=== PATIENT | male | born 1990 | race Caucasian/White ===

== ENCOUNTER 2018-05-23 10:27 | Emergency (ER) | payer OTHER, BC ==
[2018-05-23 10:35] VITALS: BP 135/80; PULSE 85; TEMP 97.9; BMI 41.5
[2018-05-23] MEDS ORDERED: KETOROLAC TROMETHAMINE 60 MG/2 ML VIAL ONE (11:19)
[2018-05-23] MEDS ORDERED: KETOROLAC TROMETHAMINE 60 MG/2 ML VIAL IM ONE (11:19)
--- NOTE | 2018-05-23 11:20 | PDOC ---
History of Present Illness - General Chief Complaint: Injury Stated Complaint: INJURY Time Seen by Provider: 05/23/18 11:04 History Source: Patient Exam Limitations: No Limitations - History of Present Illness Initial Comments: 05/23/18 11:47 States yesterday was walking across parking lot slipped and twisted his back causing a strain to his right upper back. Has had problems in the past Occurred: reports: yesterday Severity: reports: mild, moderate Pain Location: reports: back Method of Injury: Yes: fall Modifying Factors: improves with: None Loss of Consciousness: no loss of consciousness Associated Symptoms (Fall): denies symptoms, trouble walking Past History - Travel Traveled outside of the country in the last 30 days: No (slipped but did not fall to ground) Close contact w/someone who was outside of country & ill: No - Past Medical History Allergies/Adverse Reactions: Allergies Allergy/AdvReac Type Severity Reaction Status Date / Time No Known Allergies Allergy Unverified 03/03/16 07:32 Home Medications: Ambulatory Orders No Home Medications 0 dose .ROUTE UTDICT 09/04/12 Cyclobenzaprine HCl 10 mg PO Q8H PRN #14 tablet 05/23/18 Naproxen [Naprosyn -] 500 mg PO BID #30 tablet 05/23/18 Anemia: No Asthma: No Cancer: No Cardiac Disorders: No CVA: No COPD: No CHF: No Dementia: No Diabetes: No GI Disorders: No Disorders: No HTN: Yes (BORDERLINE-NO MEDS) Hypercholesterolemia: No Liver Disease: No Seizures: No Thyroid Disease: No - Surgical History Gastric Stapling: No (LAP BAND) - Family Disease History Family Disease History: Diabetes: Mother - Suicide/Smoking/Psychosocial Hx Smoking History: Smoker current status UNK Have you smoked in the past 12 months: No Hx Alcohol Use: No Drug/Substance Use Hx: No Substance Use Type: None Hx Substance Use Treatment: No Trauma Specific PMHX - Complaint Specific PMHX Arthritis: No Back Injury: No Neck Injury: No Hx Sacro Iliac Joint Dysfunction: No Review of Systems - Review of Systems Able to Perform ROS?: Yes Is the patient limited Korean proficient: Yes Constitutional: Yes: Symptoms Reported, See HPI, Malaise HEENTM: No: Symptoms Reported Respiratory: No: Symptoms reported Musculoskeletal: Yes: Symptoms Reported, See HPI, Back Pain, Muscle Pain Integumentary: Yes: See HPI. No: Symptoms Reported All Other Systems: Reviewed and Negative *Physical Exam - Vital Signs Last Vital Signs Temp Pulse Resp BP Pulse Ox 97.9 F 85 18 135/80 99 05/23/18 10:33 05/23/18 10:33 05/23/18 10:33 05/23/18 10:33 05/23/18 10:33 - Physical Exam General Appearance: Yes: Nourished, Appropriately Dressed, Apparent Distress, Mild Distress HEENT: positive: MEHNAZ, Normal ENT Inspection, TMs Normal, Pharynx Normal Neck: positive: Supple. negative: Tender, Lymphadenopathy (R), Lymphadenopathy (L) Respiratory/Chest: positive: Lungs Clear, Normal Breath Sounds. negative: Chest Tender Cardiovascular: positive: Regular Rhythm Gastrointestinal/Abdominal: positive: Soft. negative: Tender Musculoskeletal: positive: Normal Inspection, Decreased Range of Motion, Muscle Spasm (tight palpable musculature to paravertebral spinous muscles on the right mid thoracic area, no true spine tenderness crepitus or step-offs. Range of motion is somewhat limited secondary to this tenderness.). 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 *DC/Admit/Observation/Transfer Diagnosis at time of Disposition: Back muscle spasm - Discharge Dispostion Disposition: HOME Condition at time of disposition: Stable Decision to Admit order: No - Prescriptions Prescriptions: Cyclobenzaprine HCl 10 mg PO Q8H PRN #14 tablet PRN Reason: spasm Naproxen [Naprosyn -] 500 mg PO BID #30 tablet - Referrals Referrals: Zachary Gastelum MD [Primary Care Provider] - - Patient Instructions Printed Discharge Instructions: DI for Back Spasm Additional Instructions: Rest, no heavy lifting or exercise until pain is resolved Hot soaks to neck and low back as often as possible/hot showers or Jacuzzis No massage or therapy until spasm is gone Continue Naprosyn 500 mg tablet, 1 tablet every 8 hours for the next 3 days then as needed for pain and swelling Cyclobenzaprine 1-10mg every 8 hours as needed for spasm If not significant improvement within 24 hours with medication and rest regime, followup with private physician for change in medications and /or therapy. - Post Discharge Activity Forms/Work/School Notes: Back to Work
== END 2018-05-23 12:35 | disposition home or self-care (01) ==
LOC: JERFT 10:27
PROC: 3E0233Z Introduction of Anti-inflammatory into Muscle, Percutaneous Approach (ICD-10-PCS; principal; 2018-05-23)
DX: S29.012A Strain of muscle and tendon of back wall of thorax, initial encounter (principal); M62.830 Muscle spasm of back; W18.49XA Other slipping, tripping and stumbling without falling, initial encounter; Y93.01 Activity, walking, marching and hiking; Y92.481 Parking lot as the place of occurrence of the external cause; Y99.8 Other external cause status
CPT/HCPCS: 99281-25

== ENCOUNTER 2019-01-22 23:36 | Emergency (ER) | payer BC, OTHER ==
--- NOTE | 2019-01-22 23:53 | PDOC ---
Attending Attestation - Resident Resident Name: Herb Cortez - ED Attending Attestation I have performed the following: I have examined & evaluated the patient, The case was reviewed & discussed with the resident, I agree w/resident's findings & plan, Exceptions are as noted - HPI HPI: 01/23/19 00:03 28 yo male BIBA after a syncopal episode HPI the patient states that he was drinking and then started to laugh at a friend's choke and started coughing and had a brief 3-second syncopal episode He was concerned because apparently had similar episode on Tuesday01/23/19 00:16 - Physicial Exam PE: 01/23/19 00:17 Obese 27-year-old male seated on a gurney no acute distress Head is normocephalic atraumatic Neck is supple, no bruits Lungs are clear to auscultation CVS tachycardia Abdomen protuberant, with large pannus Skin warm and dry No CVA tenderness Neuro alert and oriented x3 moving all extremities purposefully - Medical Decision Making 01/23/19 01:50 labs reviewed, negative troponin plat 125,000 [id number] otherwise unremarkable 01/23/19 01:54 This EKG is normal sinus tachycardia at 106 and has no significant changes from his previous EKG on July 19, 2012 that showed a sinus tachycardia at 105 01/23/19 02:10 pt will require repeat troponin
[2019-01-23] MEDS ORDERED: LACTATED RINGERS SOLUTION 1000 ML INFUS.BAG IV ONE (00:05)
[2019-01-23 00:09] VITALS: BMI 44.6
--- NOTE | 2019-01-23 00:13 | PDOC ---
History of Present Illness - General Chief Complaint: Syncope/Near Syncope Stated Complaint: SYNCOPE Time Seen by Provider: 01/22/19 23:44 History Source: Patient, Old Records Exam Limitations: No Limitations - History of Present Illness Initial Comments: HPI: 28 y/o male presenting to [facility] ER complaining of "passing out" earlier tonight. Pt reports he was drinking (5-6 drinks), telling a joke, began coughing, then "lights out" for approx. 3 seconds. He was sitting on the cough at the time. The event was witnessed by friends. Denies tongue biting, urinary incontinence, or fecal incontinence. Returned to baseline immediately after waking. Experienced similar episode on Tuesday. Endorses EtOH both nights. Denies recent car or plane travel, no long periods of immobilization, no recent surgery, no recent cancer diagnosis, no h/o DVT/PE or other clotting disorder. Family Hx: - No h/o of sudden <35 years old - No while swimming - No h/o CT < age 65 Social Hx: - EtOH: few times per week - Uses electronic vaping pen. Denies using cartridges from unregulated sources. - Denies street drugs Medical Hx: - Morbid obesity - S/p lap banding procedure 5 years ago Review of Systems: In addition to that documented in the HPI above, the additional ROS was obtained : Constitutional- Denies fevers or chills Head- Denies vision changes ENMT- Denies sore throat CV- Denies chest pain Resp- Denies SOB GI- Denies vomiting or diarrhea - Denies painful urination MSK- Denies recent trauma Skin- Denies new rashes Neuro- Denies new numbness or tingling or weakness Endocrine- Denies polyuria Heme- Denies bleeding or bruising Physical Examination: Constitutional- Well-developed, well-nourished adult male in no acute distress or obvious discomfort. Morbidly obese body habitus. Found semi-fowlers on hospital bed. Answered all questions appropriately and completely. Head- Normocephalic. No obvious external signs of trauma. Eyes- Sclerae white. Neck- Supple, trachea is midline. Cardiovascular / Chest- Tachycardic rate with regular rhythm. No murmur, rubs, clicks, or gallops. Peripheral pulses- radial pulses full. No pretibial edema. Respiratory- Breathing unlabored. Speaking in complete sentences without pausing. Infrequent dry sounding cough. Equal chest rise and fall. Clear to auscultation bilaterally. No stridor, no wheezing, no rhonchi. Gastrointestinal- abdomen is soft, non-tender, non-distended. Exam limited by large pannus. Neuro- Alert and oriented x4. Moving all four extremities spontaneously. Gait normal. Skin- Warm, dry, and intact. Psych- Affect- appropriate. Mood- normal. Speech was non-labored, non- pressured. MDM: *Reviewed vital signs, nursing notes, and prior visit documentation (if available). 28 y/o male presenting with brief syncopal episode of approx. 3 seconds. No chest or respiratory symptoms. Afebrile rectally. Vitals remarkable for tachycardia without hypotension. Normoxic on room air. Physical exam as described above. EKG unremarkable for ischemic changes. Initial troponin negative. No significant electrolyte derangement. Given 1L LR IVFB with improvement but no resolution of tachycardia. However, previous vitals dated back to 2012 indicate the pts HR is possibly baseline. Suspect likely vasovagal syncope but will repeat troponin at three hours given tachycardia. 23 Jan 2019 02:00 AM Pt signed out to resident Dr. Justin after she was verbally appraised of the pts HPI, current ED course, and plan of management. Will f/u repeat troponin. Herb Cortez M.D., PGY2 Emergency Medicine Resident Past History - Past Medical History Allergies/Adverse Reactions: Allergies Allergy/AdvReac Type Severity Reaction Status Date / Time No Known Allergies Allergy Verified 01/23/19 01:36 Home Medications: Ambulatory Orders NK [No Known Home Medication] 01/23/19 Anemia: No Asthma: No Cancer: No Cardiac Disorders: No CVA: No COPD: No CHF: No Dementia: No Diabetes: No GI Disorders: No Disorders: No HTN: Yes (BORDERLINE-NO MEDS) Hypercholesterolemia: No Liver Disease: No Seizures: No Thyroid Disease: No - Surgical History Gastric Stapling: No (LAP BAND) - Psycho Social/Smoking Cessation Hx Smoking History: Current every day smoker Have you smoked in the past 12 months: Yes Information on smoking cessation initiated: No Hx Alcohol Use: Yes Drug/Substance Use Hx: No Substance Use Type: None Hx Substance Use Treatment: No *Physical Exam - Vital Signs Last Vital Signs Temp Pulse Resp BP Pulse Ox 97.5 F L 93 H 22 H 138/100 93 L 01/22/19 23:40 01/22/19 23:40 01/22/19 23:40 01/22/19 23:40 01/22/19 23:40 Vital Signs - Vital Signs #1 Blood Pressure: 147/99 (@01:44) MAP: 115 BP Location: Left Arm Blood Pressure Position: Sitting Pulse Rate: 109 Respiratory Rate: 22 O2 Sat by Pulse Oximetry (%): 96 Oxygen Delivery Method: Room Air ED Treatment Course - LABORATORY CBC & Chemistry Diagram: 01/23/19 01:00 01/23/19 01:00 - RADIOLOGY Radiology Studies Ordered: Category Date Time Status CHEST PA & LAT [RAD] Stat Radiology 01/23/19 00:05 Ordered Discharge - Discharge Information Problems reviewed: Yes Clinical Impression/Diagnosis: Syncope Condition: Stable Disposition: HOME - Follow up/Referral Referrals: Zachary Gastelum MD [Primary Care Provider] - Anson Salinas MD [Staff Physician] - - Patient Discharge Instructions Patient Printed Discharge Instructions: DI for Syncope in Adults (Fainting) Additional Instructions: You were seen in the ED for complaints of loss of consciousnes You had labwork and imaging that was unremarkab;e. Please follow up with your PCP within 1 week. You have a referral to Cardiology. Please follow up within the week. Return to the ED if you have repeat loss of consciousness, chest pain, shortness of breath or any concerning symptoms. - Post Discharge Activity
[2019-01-23 01:26] LABS: BASO % 0.2 % (0-2.0); EOS % 1.7 % (0-4.5); HEMATOCRIT 45.4 % (35.4-49); HEMOGLOBIN 15.5 GM/dL (11.7-16.9); LYMPH % 15.2 % (8-40); MCH 31.1 pg (25.7-33.7); MCHC 34.2 g/dl (32.0-35.9); MEAN PLT VOLUME 7.9 fl (7.5-11.1); MONO % 14.2 % (3.8-10.2); NEUT % 68.7 % (42.8-82.8); PLATELET COUNT 125 K/MM3 (134-434); RBC 4.99 M/mm3 (4.00-5.60); RDW 12.7 % (11.9-15.9); WHITE BLOOD COUNT 7.2 K/mm3 (4.0-10.0)
[2019-01-23 01:46] LABS: ALBUMIN 4.3 g/dl (3.4-5.0); BILIRUBIN,TOTAL 0.3 mg/dL (0.2-1); BLOOD UREA NITROGEN 10.6 mg/dL (7-18); CALCIUM 8.8 mg/dL (8.5-10.1); CREATININE 0.8 mg/dL (0.55-1.3); POTASSIUM 3.5 mmol/L (3.5-5.1); TOT PROT 7.3 g/dl (6.4-8.2)
--- NOTE | 2019-01-23 02:52 | PDOC ---
*Physical Exam - Vital Signs Last Vital Signs Temp Pulse Resp BP Pulse Ox 99.4 F 109 H 22 H 147/99 96 01/23/19 02:05 01/23/19 02:26 01/23/19 02:26 01/23/19 02:26 01/23/19 02:26 - Physical Exam Comments: 01/23/19 02:49 Patient signed out by resident Dr. Cortez In short patient is obese who presents seconds of syncopal episodes pending repeat trop and d dimer Patient denies history of sudden cardiac ED Course: trop, ddimer, bnp and repeat ekg all within normal ekg nsr at 101bpm patient with HR at 95 at bedside. Patient resting comfortably Given cards and pcp f/u D/C Vital Signs - Vital Signs #1 Pulse Rate: 96 ED Treatment Course - LABORATORY CBC & Chemistry Diagram: 01/23/19 01:00 01/23/19 01:00 - ADDITIONAL ORDERS Additional order review: Laboratory Results 01/23/19 01/23/19 01:00 01:00 Sodium 137 Potassium 3.5 Chloride 103 Carbon Dioxide 24 Anion Gap 10 BUN 10.6 Creatinine 0.8 Est GFR (CKD-EPI)AfAm 140.90 Est GFR (CKD-EPI)NonAf 121.57 Random Glucose 128 H Calcium 8.8 Total Bilirubin 0.3 AST 34 ALT 87 H Alkaline Phosphatase 66 Troponin I < 0.02 Total Protein 7.3 Albumin 4.3 01/23/19 01:00 RBC 4.99 MCV 91.0 MCHC 34.2 RDW 12.7 MPV 7.9 Neutrophils % 68.7 Lymphocytes % 15.2 D Monocytes % 14.2 H Eosinophils % 1.7 Basophils % 0.2 - Medications Given in the ED: ED Medications Discontinued Medications Generic Name Dose Route Start Last Admin Trade Name Freq PRN Reason Stop Dose Admin Lactated Ringer's 1,000 ml 01/23/19 00:05 01/23/19 00:22 Lactated Ringers Solution IV 01/23/19 00:06 1,000 ml ONCE ONE Administration Discharge - Discharge Information Problems reviewed: Yes Clinical Impression/Diagnosis: Syncope Condition: Stable Disposition: HOME - Follow up/Referral Referrals: Zachary Gastelum MD [Primary Care Provider] - Anson Salinas MD [Staff Physician] - - Patient Discharge Instructions Patient Printed Discharge Instructions: DI for Syncope in Adults (Fainting) Additional Instructions: You were seen in the ED for complaints of loss of consciousnes You had labwork and imaging that was unremarkab;e. Please follow up with your PCP within 1 week. You have a referral to Cardiology. Please follow up within the week. Return to the ED if you have repeat loss of consciousness, chest pain, shortness of breath or any concerning symptoms. - Post Discharge Activity
[2019-01-23 06:04] VITALS: TEMP 98
--- NOTE | 2019-01-23 09:19 | EKG ---
Test Reason : Blood Pressure : / mmHG Vent. Rate : 110 BPM Atrial Rate : 110 BPM P-R Int : 148 ms QRS Dur : 096 ms QT Int : 324 ms P-R-T Axes : 028 -09 017 degrees QTc Int : 438 ms SINUS TACHYCARDIA INFERIOR INFARCT , AGE UNDETERMINED ABNORMAL ECG NO PREVIOUS ECGS AVAILABLE Confirmed by MD Mansoor, Toribio ([id number]) on 01/23/2019 9:19:27 AM Referred By: Confirmed By:Toribio Max MD
--- NOTE | 2019-01-23 09:22 | EKG ---
Test Reason : Blood Pressure : / mmHG Vent. Rate : 101 BPM Atrial Rate : 101 BPM P-R Int : 144 ms QRS Dur : 086 ms QT Int : 350 ms P-R-T Axes : 046 011 030 degrees QTc Int : 453 ms SINUS TACHYCARDIA OTHERWISE NORMAL ECG WHEN COMPARED WITH ECG OF 23-JAN-2019 00:57, NO SIGNIFICANT CHANGE WAS FOUND Confirmed by MD Max Edward ([id number]) on 01/23/2019 9:22:18 AM Referred By: Confirmed By:Toribio Max MD
[2019-01-24 14:21] VITALS: BP 147/99; PULSE 109
== END 2019-01-23 05:50 | disposition home or self-care (01) ==
LOC: JER 23:36
DX: R55 Syncope and collapse (principal); I10 Essential (primary) hypertension; E66.01 Morbid (severe) obesity due to excess calories; Z68.42 Body mass index [BMI] 45.0-49.9, adult; Z98.84 Bariatric surgery status
CPT/HCPCS: 36415; 71046-TC-FY; 80053; 83880; 84484; 85025; 85379; 93005; 93010; 99285-25

== ENCOUNTER 2019-04-03 11:55 | Emergency (ER) | payer BC, OTHER ==
--- NOTE | 2019-04-03 12:04 | PDOC ---
History of Present Illness - General Chief Complaint: Injury Stated Complaint: LEFT KNEE INJURY Time Seen by Provider: 04/03/19 12:03 History Source: Patient Exam Limitations: No Limitations - History of Present Illness Initial Comments: Quinten Huizar is a 28 yo morbidly obese M w a pmh of HTN and Lap Band bariatric surgery who presents to the [place] ED with acute onset traumatic left knee pain. 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 He believes his knee locked up but denies having experienced a pop, swelling or an effusion. The patient states he can ambulate on his knee but it is painful. He endorses a normal full range of motion but states his strength is limited secondary to pain. He denies any pain at rest. He denies any sensory abnormalities. PCP: Nirav PSH: Lap Band Sx Social Hx: Every day smoker, recreational alcohol, denies illicit drug usage Allergies: NKA, NKDA Past History - Past Medical History Allergies/Adverse Reactions: Allergies Allergy/AdvReac Type Severity Reaction Status Date / Time No Known Allergies Allergy Verified 04/03/19 12:01 Home Medications: Ambulatory Orders NK [No Known Home Medication] 01/23/19 Anemia: No Asthma: No Cancer: No Cardiac Disorders: No CVA: No COPD: No CHF: No Dementia: No Diabetes: No GI Disorders: No Disorders: No HTN: Yes (BORDERLINE-NO MEDS) Hypercholesterolemia: No Liver Disease: No Seizures: No Thyroid Disease: No - Surgical History Gastric Stapling: No (LAP BAND) - Psycho Social/Smoking Cessation Hx Smoking History: Current every day smoker Have you smoked in the past 12 months: Yes Hx Alcohol Use: Yes Drug/Substance Use Hx: No Substance Use Type: None Hx Substance Use Treatment: No Review of Systems - Review of Systems Able to Perform ROS?: Yes Comments:: CONSTITUTIONAL: Absent: fever, chills, diaphoresis, generalized weakness, malaise, loss of appetite HEENT: Absent: rhinorrhea, nasal congestion, throat pain, throat swelling, difficulty swallowing, mouth swelling, ear pain, eye pain, visual Changes CARDIOVASCULAR: Absent: chest pain, syncope, palpitations, irregular heart rate, lightheadedness , peripheral edema RESPIRATORY: Absent: cough, shortness of breath, dyspnea with exertion, orthopnea, wheezing, stridor, hemoptysis GASTROINTESTINAL: Absent: abdominal pain, abdominal distension, nausea, vomiting, diarrhea, constipation, melena, hematochezia GENITOURINARY: Absent: dysuria, frequency, urgency, hesitancy, hematuria, flank pain, genital pain MUSCULOSKELETAL: Present: Arthralgia Absent: myalgia, joint swelling SKIN: Absent: rash, itching, pallor HEMATOLOGIC/IMMUNOLOGIC: Absent: easy bleeding, easy bruising, lymphadenopathy, frequent infections ENDOCRINE: Absent: unexplained weight gain, unexplained weight loss, heat intolerance, cold intolerance NEUROLOGIC: Absent: headache, focal weakness or paresthesias, dizziness, unsteady gait, seizure, mental status changes, bladder or bowel incontinence PSYCHIATRIC: Absent: anxiety, depression, suicidal or homicidal ideation, hallucinations. *Physical Exam - Physical Exam LEFT KNEE: There is no swelling, erythema or effusion. 2+ DP and PT pulses. There is mild patellar, suprapatellar, and infrapatellar TTP. Full passive ROM. Mild extensor and flexor decreased strength secondary to pain. no medial TTP. Mild lateral TTP. Negative posterior and anterior drawer tests. Negative heavenly test. GENERAL: Morbidly obese. Well developed, well nourished. Awake and alert. No acute distress. HEENT: Normocephalic, atraumatic. PERRLA, EOMI. Sclera are non-icteric. Moist mucous membranes. Oropharynx is clear. NECK: Supple. Full ROM. CARDIOVASCULAR: Regular rate and rhythm. No murmurs, rubs, or gallops. Distal pulses are 2+ and symmetric. PULMONARY: No evidence of respiratory distress. Lungs clear to auscultation bilaterally. No wheezing, rales or rhonchi. ABDOMINAL: Soft. Non-tender. Non-distended. No rebound or guarding. No organomegaly. Normoactive bowel sounds. MUSCULOSKELETAL Normal range of motion at all other joints. No bony deformities or tenderness. No CVA tenderness. EXTREMITIES: No cyanosis. No clubbing. No edema. No calf tenderness. SKIN: Warm and dry. Normal capillary refill. No rashes. No jaundice. NEUROLOGICAL: Alert, awake, appropriate. Normal speech. Gait is normal without ataxia. PSYCHIATRIC: Cooperative. Good eye contact. Appropriate mood and affect. Medical Decision Making - Medical Decision Making Quinten Huizar is a 28 yo morbidly obese M w a pmh of HTN and Lap Band bariatric surgery who presents to the [place] ED with acute onset traumatic left knee pain. 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 He believes his knee locked up but denies having experienced a pop, swelling or an effusion. The patient states he can ambulate on his knee but it is painful. He endorses a normal full range of motion but states his strength is limited secondary to pain. He denies any pain at rest. He denies any sensory abnormalities. Vital Signs Temp Pulse Resp BP Pulse Ox 98.4 F 105 H 16 150/98 98 04/03/19 12:00 04/03/19 12:00 04/03/19 12:00 04/03/19 12:00 04/03/19 12:00 DDx IBNLT: ACL vs MCL vs LCL vs PCL vs meniscal injury vs pattellar tendon injury vs quadricep tendon injury Plan: XR to assess for fx, NSAID, RICE, knee immobilizer, ortho FU XR: No acute Fx Dispo: Home with Ortho FU. NSAIDs for pain control. RICE. Discharge - Discharge Information Problems reviewed: Yes Clinical Impression/Diagnosis: Left knee injury Qualifiers: Encounter type: initial encounter Qualified Code(s): S89.92XA - Unspecified injury of left lower leg, initial encounter Condition: Improved Disposition: HOME - Admission No - Follow up/Referral Referrals: Zachary Gastelum MD [Primary Care Provider] - Sadi Camejo DO [Staff Physician] - Alber Lebron DO [Staff Physician] - - Patient Discharge Instructions Patient Printed Discharge Instructions: DI for Knee Sprain, How To Perform RICE (Rest, Ice, Compress, Elevate), DI for Knee Pain Additional Instructions: You came into the ER after you hurt your knee with left knee pain. Take motrin/ ibuprofen/advil as needed for pain control. We did an x-ray which showed no acute fracture. Please read the attached handouts for further information. Please call up the orthopedist we are referring you to and schedule a follow up appointment in the next 7 to 10 days. Come back to the ER immediately if your pain worsens, you get a fever, your knee starts swelling, or you have any other new or worsening concerns. Print Language: SOUTH SUDANESE - Post Discharge Activity
[2019-04-03] MEDS ORDERED: IBUPROFEN 600 MG TABLET (FP) PO ONE ×2 (12:08→12:16)
[2019-04-03 12:13] VITALS: BP 150/98; PULSE 105; TEMP 98.4; BMI 45.4
--- NOTE | 2019-04-03 12:27 | PDOC ---
Attending Attestation - Resident Resident Name: Martin Hand - ED Attending Attestation I have performed the following: I have examined & evaluated the patient, The case was reviewed & discussed with the resident, I agree w/resident's findings & plan, Exceptions are as noted - HPI HPI: 04/03/19 12:24 28y M hx of lap band, presents with traumatic L knee pain, after being run into by a student. Thinks it may of locked during the incident but the pain is worse when he is ambulating. No pain at rest. Denies exam +no erythema neg anterior/posterior drawer,neg heavenly no pain with passive ROM no focal bony tenderness suspect strain supportive care tylenol/motrin/rest/knee brace will obtain xray to screen for bony abnormality - Physicial Exam PE: 04/06/19 05:36 see abve - Medical Decision Making 04/06/19 05:36 see above
== END 2019-04-03 13:44 | disposition home or self-care (01) ==
LOC: FER 11:55
DX: S89.92XA Unspecified injury of left lower leg, initial encounter (principal); E66.01 Morbid (severe) obesity due to excess calories; I10 Essential (primary) hypertension; Z98.84 Bariatric surgery status
CPT/HCPCS: 73562-TC-LT-FY; 99282-25

== ENCOUNTER 2019-04-22 05:35 | Emergency (ER) | payer BC, OTHER ==
[2019-04-22 05:41] VITALS: BP 156/110; PULSE 101; TEMP 98; BMI 44.6
[2019-04-22] MEDS ORDERED: NAPROXEN 500 MG TABLET PO ONE (05:51)
[2019-04-22] MEDS ORDERED: NAPROXEN 500 MG TABLET ONE (05:52)
--- NOTE | 2019-04-22 05:55 | PDOC ---
History of Present Illness - General Chief Complaint: Injury Stated Complaint: BACK PAIN Time Seen by Provider: 04/22/19 05:47 - History of Present Illness Initial Comments: 04/22/19 05:55 slipped going down stairs landed on back c/o back pain when he breathes or moves a certain way Timing/Duration: 1 hour Severity: moderate Modifying Factors: worse with: medication Associated Symptoms: denies: chest pain, fever/chills Past History - Past Medical History Allergies/Adverse Reactions: Allergies Allergy/AdvReac Type Severity Reaction Status Date / Time No Known Allergies Allergy Verified 04/03/19 12:01 Home Medications: Ambulatory Orders Naproxen 500 mg PO BID PRN #12 tablet 04/22/19 Anemia: No Asthma: No Cancer: No Cardiac Disorders: No CVA: No COPD: No CHF: No Dementia: No Diabetes: No GI Disorders: No Disorders: No HTN: Yes (BORDERLINE-NO MEDS) Hypercholesterolemia: No Liver Disease: No Seizures: No Thyroid Disease: No Other medical history: MORBIDLY OBESE - Surgical History Gastric Stapling: No (LAP BAND) - Psycho Social/Smoking Cessation Hx Smoking History: Never smoked Have you smoked in the past 12 months: Yes Hx Alcohol Use: Yes Drug/Substance Use Hx: No Substance Use Type: None Hx Substance Use Treatment: No Review of Systems - Review of Systems All Other Systems: Reviewed and Negative *Physical Exam - Vital Signs Last Vital Signs Temp Pulse Resp BP Pulse Ox 98 F 101 H 18 156/110 H 100 04/22/19 05:36 04/22/19 05:36 04/22/19 05:36 04/22/19 05:36 04/22/19 05:36 - Physical Exam General Appearance: Yes: Nourished, Appropriately Dressed Neck: negative: Tender Respiratory/Chest: positive: Lungs Clear Cardiovascular: positive: Regular Rhythm Gastrointestinal/Abdominal: negative: Tender Musculoskeletal: positive: Muscle Spasm. negative: Decreased Range of Motion, Vertebral Tenderness Extremity: positive: Normal Capillary Refill, Normal Range of Motion, Pelvis Stable Integumentary: positive: Normal Color Neurologic: positive: Fully Oriented, Motor Strength 5/5 Medical Decision Making - Medical Decision Making 04/22/19 05:56 msk back pain nsaids elevated BP--diet/ exercise; BP recheck within 1 week Discharge - Discharge Information Problems reviewed: Yes Clinical Impression/Diagnosis: Back muscle spasm Condition: Stable Disposition: HOME - Additional Discharge Information Prescriptions: Naproxen 500 mg PO BID PRN #12 tablet PRN Reason: Pain - Follow up/Referral Referrals: Zachary Gastelum MD [Primary Care Provider] - - Patient Discharge Instructions Patient Printed Discharge Instructions: DI for High Blood Pressure, DI for Muscle Spasm Additional Instructions: Please check your blood pressure again within a week - Post Discharge Activity
--- NOTE | 2019-04-22 06:03 | PDOC ---
History of Present Illness - General Chief Complaint: Injury Stated Complaint: BACK PAIN Time Seen by Provider: 04/22/19 05:47 Past History - Past Medical History Allergies/Adverse Reactions: Allergies Allergy/AdvReac Type Severity Reaction Status Date / Time No Known Allergies Allergy Verified 04/03/19 12:01 Home Medications: Ambulatory Orders Naproxen 500 mg PO BID PRN #12 tablet 04/22/19 Anemia: No Asthma: No Cancer: No Cardiac Disorders: No CVA: No COPD: No CHF: No Dementia: No Diabetes: No GI Disorders: No Disorders: No HTN: Yes (BORDERLINE-NO MEDS) Hypercholesterolemia: No Liver Disease: No Seizures: No Thyroid Disease: No Other medical history: MORBIDLY OBESE - Surgical History Gastric Stapling: No (LAP BAND) - Psycho Social/Smoking Cessation Hx Smoking History: Never smoked Have you smoked in the past 12 months: Yes Hx Alcohol Use: Yes Drug/Substance Use Hx: No Substance Use Type: None Hx Substance Use Treatment: No Trauma Specific PMHX - Complaint Specific PMHX Arthritis: No Back Injury: No Neck Injury: No Hx Sacro Iliac Joint Dysfunction: No *Physical Exam - Vital Signs Last Vital Signs Temp Pulse Resp BP Pulse Ox 98 F 101 H 18 156/110 H 100 04/22/19 05:36 04/22/19 05:36 04/22/19 05:36 04/22/19 05:36 04/22/19 05:36 ED Treatment Course - Medications Given in the ED: ED Medications Discontinued Medications Generic Name Dose Route Start Last Admin Trade Name Freq PRN Reason Stop Dose Admin Naproxen 500 mg 04/22/19 05:51 04/22/19 05:53 Naprosyn - PO 04/22/19 05:52 500 mg ONCE ONE Administration Discharge - Discharge Information Problems reviewed: Yes Clinical Impression/Diagnosis: Back muscle spasm Condition: Stable Disposition: HOME - Additional Discharge Information Prescriptions: Naproxen 500 mg PO BID PRN #12 tablet PRN Reason: Pain - Follow up/Referral Referrals: Zachary Gastelum MD [Primary Care Provider] - - Patient Discharge Instructions Patient Printed Discharge Instructions: DI for High Blood Pressure, DI for Muscle Spasm Additional Instructions: Please check your blood pressure again within a week - Post Discharge Activity Work/Back to School Note: Back to Work
== END 2019-04-22 06:03 | disposition home or self-care (01) ==
LOC: FER 05:35
DX: R25.2 Cramp and spasm (principal); W10.9XXA Fall (on) (from) unspecified stairs and steps, initial encounter; Y93.89 Activity, other specified; Y92.89 Other specified places as the place of occurrence of the external cause; Z98.84 Bariatric surgery status; Z87.891 Personal history of nicotine dependence; I10 Essential (primary) hypertension; E66.01 Morbid (severe) obesity due to excess calories
CPT/HCPCS: 99281-25

== ENCOUNTER 2021-10-26 06:58 | Day surgery (SDC) | payer BC ==
[2021-10-20 11:36] VITALS: BMI 67.3
[2021-10-26] MEDS ORDERED: ONDANSETRON 4 MG/2 ML VIAL ONE (07:49)
[2021-10-26] MEDS ORDERED: DEXAMETHASONE SOD PHOSPHATE 4 MG/1 ML VIAL ONE (07:49)
[2021-10-26] MEDS ORDERED: LIDOCAINE HCL/PF 2% SDV 5ML VIAL ONE (07:49)
[2021-10-26] MEDS ORDERED: ROCURONIUM BROMIDE 50 MG/5 ML SYRINGE ONE ×2 (07:49→10:01)
[2021-10-26] MEDS ORDERED: PROPOFOL 40 ML ONE (07:49)
[2021-10-26] MEDS ORDERED: SUCCINYLCHOLINE CHLORIDE 200 MG/10 ML SYRINGE ONE (07:49)
[2021-10-26] MEDS ORDERED: MIDAZOLAM HCL 2 MG/2 ML SINGLE DOSE VIAL ONE ×2 (07:50→08:45)
[2021-10-26] MEDS ORDERED: ALBUTEROL SO4 HFA INHALER IH PRN (07:54)
[2021-10-26] MEDS ORDERED: SODIUM CHLORIDE 0.9% P/F 10 ML VIAL IJ ONE (07:56)
[2021-10-26] MEDS ORDERED: ceFAZolin SODIUM 1 GM VIAL ONE (07:56)
[2021-10-26] MEDS ORDERED: GLYCOPYRROLATE 0.2 MG/1 ML VIAL ONE (08:45)
[2021-10-26] MEDS ORDERED: KETAMINE HCL 200 MG/20 ML VIAL ONE (08:45)
[2021-10-26] MEDS ORDERED: ACETAMINOPHEN INJECTION 100 ML IVPB ONE (09:03)
[2021-10-26] MEDS ORDERED: DEXMEDETOMIDINE HCL 200 MCG/2 ML IVPB ONE (09:03)
[2021-10-26] MEDS ORDERED: BUPIVACAINE HCL/PF 0.25% (2.5MG/ML) 10 ML VIAL ONE (09:07)
[2021-10-26] MEDS ORDERED: SUGAMMADEX SODIUM 200 MG/2 ML VIAL ONE (10:01)
[2021-10-26] MEDS ORDERED: ONDANSETRON 4 MG/2 ML VIAL IVPUSH PRN ×2 (11:13→11:30)
[2021-10-26] MEDS ORDERED: SODIUM CHLORIDE 1,000 ML IV SCH (11:15)
[2021-10-26] MEDS ORDERED: LACTATED RINGERS SOLUTION 1,000 ML IV SCH (11:30)
[2021-10-26] MEDS ORDERED: oxyCODONE HCL 5 MG TABLET PO PRN ×2 (11:30)
[2021-10-26 11:53] LABS: HEMATOCRIT 45.2 % (35.4-49); HEMOGLOBIN 15.7 G/dL (11.7-16.9); MCH 32.5 pg (25.7-33.7); MCHC 34.8 g/dl (32.0-35.9); MEAN CELL VOLUME 93.3 fl (80-96); MEAN PLT VOLUME 7.5 fl (7.5-11.1); PLATELET COUNT 103.1 10^3/uL (134-434); RBC 4.84 10^6/uL (4.00-5.60); RDW 13.8 % (11.9-15.9); WHITE BLOOD COUNT 8.9 10^3/uL (4.0-10.8)
[2021-10-26 12:27] VITALS: TEMP 98.2
[2021-10-26] MEDS ORDERED: ENOXAPARIN NA (PORCINE) 40 MG/0.4 ML DISP.SYRIN SQ ONE ×2 (12:51→13:00)
[2021-10-26] MEDS ORDERED: FAMOTIDINE 20 MG PREMIXED IVPB IVPB ONE (12:55)
[2021-10-26] MEDS ORDERED: FAMOTIDINE 20 MG/50 ML IVPB 20 MG/50 ML MG IVPB SCH (13:00)
[2021-10-26 15:04] VITALS: RESP 18
[2021-10-26 15:20] VITALS: BP 139/79; PULSE 89
== END 2021-10-26 15:05 | disposition home or self-care (01) ==
LOC: FASUSAT 06:58
PROVIDERS: ATTEND Surgery
PROC: 0DN64ZZ Release Stomach, Percutaneous Endoscopic Approach (ICD-10-PCS; 2021-10-26)
PROC: 0DP64CZ Removal of Extraluminal Device from Stomach, Percutaneous Endoscopic Approach (ICD-10-PCS; principal; 2021-10-26 09:56)
DX: T85.518A Breakdown (mechanical) of other gastrointestinal prosthetic devices, implants and grafts, initial encounter (principal); Y73.3 Surgical instruments, materials and gastroenterology and urology devices (including sutures) associated with adverse incidents; Y93.89 Activity, other specified; Y92.89 Other specified places as the place of occurrence of the external cause; K95.09 Other complications of gastric band procedure; R10.13 Epigastric pain; R11.2 Nausea with vomiting, unspecified; K66.0 Peritoneal adhesions (postprocedural) (postinfection)
CPT/HCPCS: 36415; 80048; 85027; 88300-TC; 94660; 94760

== ENCOUNTER 2022-03-10 10:07 | Emergency (ER) | payer BC ==
[2022-03-10 10:16] VITALS: BP 141/93; PULSE 98; RESP 18; TEMP 98.8; BMI 76.7
[2022-03-10] MEDS ORDERED: LIDOCAINE HCL 1%, 10 MG/ML (20ML VIAL) ONE (11:10)
== END 2022-03-10 12:10 | disposition home or self-care (01) ==
LOC: FER 10:07
PROC: 0H9HXZZ Drainage of Right Upper Leg Skin, External Approach (ICD-10-PCS; principal; 2022-03-10)
DX: L02.415 Cutaneous abscess of right lower limb (principal)
CPT/HCPCS: 99283-25

== ENCOUNTER 2022-03-15 10:52 | Emergency (ER) | payer BC ==
[2022-03-15] MEDS ORDERED: SODIUM CHLORIDE 1,000 ML IV ONE (11:32)
[2022-03-15 11:36] VITALS: BMI 78.2
[2022-03-15] MEDS ORDERED: ACETAMINOPHEN 1000 MG/100 ML BAG IVPB ONE (12:11)
[2022-03-15] MEDS ORDERED: ACETAMINOPHEN INJECTION 100 ML IVPB ONE (12:33)
[2022-03-15] MEDS ORDERED: PIPERACILLIN/TAZOB 4.5 GM 4.5 GM in DEXTROSE 5%-WATER 100 ML IVPB ONE (13:10)
[2022-03-15 13:39] LABS: HEMATOCRIT 45.1 % (35.4-49); MCH 28.1 pg (25.7-33.7); MEAN CELL VOLUME 90.5 fl (80-96); MEAN PLT VOLUME 10.7 fl (7.5-11.1); PLATELET COUNT 80 10^3/uL (134-434); RBC 4.98 M/mm3 (4.00-5.60); RDW 15.1 % (11.9-15.9); VENOUS O2 SATURATION 92.5 % (70-80); VENOUS PCO2 37.4 mmHg (38-52); VENOUS PH 7.392 (7.310-7.410); WHITE BLOOD COUNT 6.9 K/mm3 (4.0-10.0)
[2022-03-15] MEDS ORDERED: PIPERACILLIN/TAZOB 4.5 GM 4.5 GM/100 ML BAG IVPB ONE (13:46)
[2022-03-15 13:51] LABS: CHLORIDE 87 mmol/L (98-107); SODIUM 125 mmol/L (136-145)
[2022-03-15 13:54] LABS: ALBUMIN 2.8 g/dl (3.4-5.0); ANION GAP 17 MMOL/L (8-16); CALCIUM 7.9 mg/dL (8.5-10.1); CO2 21 mmol/L (21-32)
[2022-03-15 13:55] LABS: BLOOD UREA NITROGEN 17.3 mg/dL (7-18)
[2022-03-15 13:57] LABS: SGOT/AST 58 U/L (15-37); SGPT/ALT 89 U/L (13-61)
[2022-03-15 13:59] LABS: BILIRUBIN,TOTAL 1.1 mg/dL (0.2-1); TOT PROT 6.4 g/dl (6.4-8.2)
[2022-03-15 14:00] LABS: ALK PHOS 56 U/L (45-117)
[2022-03-15 14:06] LABS: PH,URINE 5.5 (5.0-8.0); URINE APPEARANCE CLEAR; URINE BILIRUBIN NEGATIVE (NEGATIVE); URINE COLOR YELLOW; URINE GLUCOSE (UA) 3+ (NEGATIVE); URINE KETONE NEGATIVE (NEGATIVE); URINE LEUK ESTERASE NEGATIVE (NEGATIVE); URINE NITRITE NEGATIVE (NEGATIVE); URINE PROTEIN TRACE (NEGATIVE); URINE UROBILINOGEN 0.2 mg/dL (0.2-1.0)
[2022-03-15 14:10] LABS: CREATININE 1.9 mg/dL (0.55-1.3); GLUCOSE,RANDOM 936 mg/dL (74-106)
[2022-03-15] MEDS ORDERED: SODIUM CHLORIDE 0.9% 500 ML INFUS.BAG IV ONE (14:10)
[2022-03-15 14:15] LABS: LACTIC ACID 6.2 mmol/L (0.4-2.0)
[2022-03-15 14:18] LABS: ANISOCYTOSIS 0; MACROCYTOSIS 1+
[2022-03-15] MEDS ORDERED: INSULIN REGULAR HUMAN 100 UNITS/ML *VIAL SQ ONE (14:18)
[2022-03-15 15:00] LABS: URINE RBC 10.5 /uL (0-23.9); URINE WBC 2.1 /uL (0-25.8)
[2022-03-15 15:01] LABS: URINE BACTERIA 3.8 /uL (0-1359)
[2022-03-15 15:09] VITALS: BP 92/61; PULSE 114; RESP 40; TEMP 99.8
[2022-03-15] MEDS ORDERED: PIPERACILLIN/TAZOB 4.5 GM 4.5 GM in DEXTROSE 5%-WATER 100 ML IVPB SCH (22:00)
== END 2022-03-15 15:17 | disposition short-term general hospital (02) ==
LOC: JER 10:52
PROC: 3E0333Z Introduction of Anti-inflammatory into Peripheral Vein, Percutaneous Approach (ICD-10-PCS; principal; 2022-03-15)
PROC: 3E03329 Introduction of Other Anti-infective into Peripheral Vein, Percutaneous Approach (ICD-10-PCS; 2022-03-15)
PROC: 3E03329 Introduction of Other Anti-infective into Peripheral Vein, Percutaneous Approach (ICD-10-PCS; 2022-03-15)
PROC: 3E03329 Introduction of Other Anti-infective into Peripheral Vein, Percutaneous Approach (ICD-10-PCS; 2022-03-15)
PROC: 3E0337Z Introduction of Electrolytic and Water Balance Substance into Peripheral Vein, Percutaneous Approach (ICD-10-PCS; 2022-03-15)
DX: E87.3 Alkalosis (principal); R73.9 Hyperglycemia, unspecified; N17.9 Acute kidney failure, unspecified; L03.115 Cellulitis of right lower limb
CPT/HCPCS: 0241U-QW; 71045-TC-FY; 80053; 81003; 82010; 82550; 82553; 82803; 82962; 83605; 84443; 85025; 86850; 86900; 86901; 87040; 87086; 93005; 93010; 99291